=== PATIENT | female | born 1975 | race Caucasian/White ===

== ENCOUNTER → 2018-04-24 | Outpatient (CLI) | payer OTHER ==
[2017-07-11 15:26] VITALS: BP 146/97
[~2018-04-24] MED LIST: LEVO500T59 PO; LINA5TAB4 PO; METF500T3 PO; PROAIR HFA8.5 GM INH; RAMI10CA53 PO
--- NOTE | 2018-04-25 09:10 | CARD ---
MR#: [id number] Date of Study: 04/24/2018 Ordering Physician: SUSAN SHEETS, Referring Physician: SUSAN SHEETS, Tech: Ayla Medina SHEKHAR APPROVED REPORT EXAM: Two-dimensional and M-mode echocardiogram with Doppler and color Doppler. Other Information Quality : Fair INDICATION Pericardial Cyst RISK FACTORS Obesity 2D DIMENSIONS RVDd3.4 (2.9-3.5cm)Left Atrium(2D)4.1 (1.6-4.0cm) IVSd1.2 (0.7-1.1cm)Aortic Root(2D)2.8 (2.0-3.7cm) LVDd5.5 (3.9-5.9cm)LVOT Diameter2.3 (1.8-2.4cm) PWd1.1 (0.7-1.1cm)LVDs4.3 (2.5-4.0cm) FS (%) 21.6 %SV64.5 ml LVEF(%)55.0 (>50%) Aortic Valve AoV Peak Curry.122.2cm/sAoV VTI20.3cm AO Peak GR.6.0mmHgLVOT Peak Curry.114.9cm/s LVOT VTI 20.58cmAO Mean GR.4mmHg BRIAN (VMAX)3.24vf0RFI (VTI)4.27cm2 Mitral Valve MV E Pbeyawkd35.2cm/sMV DECEL [id number] MV A Royjcvsu415.7cm/sMV BLG75vu E/A Ratio0.8MVA (PHT)3.19cm2 TDI E/Lateral E'12.6E/Medial E'7.9 Tricuspid Valve TR P. Idgsyrji428iz/sRAP [id number] TR Peak Gr.21myBuGVYW28anHf Pulmonary Vein S1 Nowtexmc75.5cm/sD2 Mteyjivj03.8cm/s LEFT VENTRICLE The left ventricle is normal size. There is mild concentric left ventricular hypertrophy. The left ve ntricular systolic function is normal. The Ejection Fraction is 55-60%. There is normal LV segmental wall motion. Transmitral Doppler flow pattern is Grade I-abnormal relaxation pattern. RIGHT VENTRICLE The right ventricle is normal size. The right ventricular systolic function is normal. ATRIA The left atrium is mildly dilated. The right atrium size is normal. The interatrial septum is intact with no evidence for an atrial septal defect or patent foramen ovale as noted on 2-D or Doppler imagi ng. AORTIC VALVE The aortic valve is not well visualized but appears to be functioning normally by Doppler interrogati on. Doppler and Color Flow revealed no significant aortic regurgitation. There is no significant aort ic valvular stenosis. MITRAL VALVE The mitral valve is normal in structure and function. There is no evidence of mitral valve prolapse. There is no mitral valve stenosis. Doppler and Color Flow revealed no mitral valve regurgitation note d. TRICUSPID VALVE The tricuspid valve is normal in structure and function. Doppler and Color Flow revealed trace tricus pid regurgitation. The PA pressure was estimated at 23 mmHg. There is no tricuspid valve stenosis. PULMONIC VALVE The pulmonic valve is not well visualized. Doppler and Color Flow revealed no pulmonic valvular regur gitation. There is no pulmonic valvular stenosis. GREAT VESSELS The aortic root is normal in size. The ascending aorta is normal in size. The IVC is normal in size a nd collapses >50% with inspiration. PERICARDIAL EFFUSION There is no evidence of significant pericardial effusion. Critical Notification Critical Value: No <Conclusion> Technically difficult study. The left ventricular systolic function is normal. The Ejection Fraction is 55-60%. There is normal LV segmental wall motion. Transmitral Doppler flow pattern is Grade I-abnormal relaxation pattern. Doppler and Color Flow revealed trace tricuspid regurgitation. The PA pressure was estimated at 23 mmHg. There is no evidence of significant pericardial effusion. Signed by : Igor Thurman, Electronically Approved : 04/25/2018 09:09:58
== END | disposition home or self-care (01) ==
LOC: ECHO 13:01
PROVIDERS: ATTEND Internal Medicine Cardiovascular Disease
DX: Q24.8 Other specified congenital malformations of heart (principal); I51.7 Cardiomegaly
CPT/HCPCS: 93306

== ENCOUNTER → 2021-06-22 | Outpatient (CLI) | payer OTHER ==
[2017-07-11 15:26] VITALS: BP 146/97
[~2021-06-22] MED LIST changes: +ALBU2.5V8 INH; +LINA5TAB PO; -LINA5TAB4 PO; -PROAIR HFA8.5 GM INH
--- NOTE | 2021-06-22 16:36 | KCIC ---
Bilateral digital screening mammograms: Reason for examination: Routine baseline screening. Interpretation was made with the benefit of CAD. The skin and nipples show no abnormalities. No abnormal axillary lymph nodes are seen. The breast par enchyma shows scattered fibroglandular density. (Breast density: Category B.) There is a small 7 mm n odule in the anterior left breast on cc view probably at the 11:00 position. Recommend further evalua tion with ultrasound. There are no other masses, suspicious calcifications or architectural distortio ns. Benign calcifications are evident. Impression: Small 7 mm nodular density seen anterior medially in the left breast on cc view probably at the 11:00 position. Recommend further evaluation with ultrasound. BI-RADS Category 0: Incomplete. Needs additional imaging evaluation. "Our facility is accredited by the [employer] Mammography Program." This patient's information has been entered into a reminder system for the patient to be notified wit h the results of her examination and a target date for the next mammogram. Electronically signed by: Jacinda Marie MD (06/22/2021 4:33 PM) [id number]
== END ==
LOC: KCIC MAMMO 15:49
PROVIDERS: ATTEND Family Medicine
DX: Z12.31 Encounter for screening mammogram for malignant neoplasm of breast (principal)
CPT/HCPCS: 77067